=== PATIENT | female | born 1975 | race Caucasian/White ===

== ENCOUNTER 2017-10-05 15:52 | Emergency (ER) | payer BC, OTHER ==
[~2017-10-05] VITALS: Ht 160 cm; Wt 86.2 kg
[2017-10-05 18:30] VITALS: BP 121/86
== END 2017-10-05 22:29 | disposition left against medical advice (07) ==
LOC: EDBD 15:52 → ER 15:58
DX: M79.604 Pain in right leg (principal); Z53.21 Procedure and treatment not carried out due to patient leaving prior to being seen by health care provider
CPT/HCPCS: 73562; 73590; 73610; 73630; 82962